=== PATIENT | male | born 1995 | race Caucasian/White ===

== ENCOUNTER 2021-11-20 11:02 | Emergency (ER) | payer SELFPAY ==
--- NOTE | 2021-11-20 11:03 | PC.NURSE ---
pt refused to give this RN birthdate and name. pt began providing basic information. pt asked again to answer questions. pt aggressively stated, what? she can't answer for me? I'm in too much pain .
--- NOTE | 2021-11-20 11:06 | PC.NURSE ---
pt seen ambulating out of ED on cell phone. did not speak to staff upon exit.
== END 2021-11-20 11:06 | disposition left against medical advice (07) ==
DX: Z53.21 Procedure and treatment not carried out due to patient leaving prior to being seen by health care provider (principal)
CPT/HCPCS: 99199